=== PATIENT | female | born 1950 | race Caucasian/White ===

== ENCOUNTER 2016-12-16 14:34 | Emergency (ER) | payer OTHER ==
[2016-12-16 14:56] VITALS: RESP 16
--- NOTE | 2016-12-16 15:26 | EDPHY ---
HPI/HX/ROS/PE/MDM Narrative: CHIEF COMPLAINT: Left ankle injury HPI: The patient is a 66-year-old female who is prediabetic. She is visiting from [place]. Yesterday she stepped awkwardly in a depression on the ground, causing an eversion injury of her left ankle. She complains of pain when walking on it and swelling to the lateral aspect. She denies other injuries. REVIEW OF SYSTEMS: Aside from elements discussed in the HPI, a comprehensive 10-point review of systems was reviewed and is negative. PMH: Pre diabetes, hypertension SOCIAL HISTORY: Lives in [facility]. Here visiting her family. PHYSICAL EXAM: General:Patient is alert, in no acute distress. Extremities: Left ankle: Tenderness to palpation and swelling is present over the lateral malleolus. There is no foot tenderness or ecchymosis. Distal pulses are normal. No tenderness to palpation to leg or knee. Neuro: Oriented x3. Normal motor function. Normal sensory function. MDM: This patient presents with an ankle sprain complicated by mild avulsion fracture. I will place her in an ankle splint and give her crutches. [place] and I recommended that she try and delay her flight if possible. - Data Points Imaging Results: Imaging Impressions Ankle X-Ray 12/16/16 14:51 Impression: Possible acute lateral fibular-talar ligament avulsion.. Imaging: I viewed and interpreted images myself General Time Seen by Provider: 12/16/16 14:51 Initial Vital Signs: Initial Vital Signs Temperature (C) 36.5 C 12/16/16 14:53 Heart Rate 68 12/16/16 14:53 Respiratory Rate 16 12/16/16 14:53 Blood Pressure 190/115 H 12/16/16 14:53 O2 Sat (%) 97 12/16/16 14:53 O2 Delivery Mode Room Air Allergies/Adverse Reactions: anti Allergy (Uncoded 12/16/16 14:56) Departure - Departure Disposition: Home, Routine, Self-Care Clinical Impression: Left ankle sprain, Closed avulsion fracture of distal end of fibula Condition: Good Instructions: Ankle Sprain (ED) Additional Instructions: Rest, ice, elevation. Follow up with an orthopedic surgeon within one week if pain persists. Return to the emergency department for worsening pain, swelling , numbness, weakness or other concerns. Wear splint for comfort, weight bear as tolerated. Referrals: NONE *PRIMARY CARE P,. [Primary Care Provider] - As per Instructions Migue Marks MD [Medical Doctor] - As per Instructions
[2016-12-16 16:14] VITALS: BP 171/99; PULSE 82; TEMP 98.2; O2SAT 94
== END 2016-12-16 16:12 | disposition home or self-care (01) ==
DX: S93.402A Sprain of unspecified ligament of left ankle, initial encounter (principal); S82.832A Other fracture of upper and lower end of left fibula, initial encounter for closed fracture; I10 Essential (primary) hypertension; X58.XXXA Exposure to other specified factors, initial encounter
CPT/HCPCS: L4350